=== PATIENT | female | born 1975 | race Caucasian/White ===

== ENCOUNTER 2017-09-26 09:45 | Emergency (ER) | payer OTHER ==
[2017-09-26 09:52] VITALS: BP 114/64
--- NOTE | 2017-09-26 10:14 | UC ---
Hayden Vaughn Gabriel, scribed for Liam Carroll MD on 09/26/17 at 1003 . Complaint Female HPI - HPI Summary HPI Summary: This patient is a 41 year old F presenting to [facility] with a chief complaint of dysuria that began two days ago. The patient rates the pain 3/10 in severity. Patient reports hematuria and frequency. Patient denies fever, chills, back pain , and ABD pain. Pt has a right ovarian mass that she received an MRI for today. She is following up with Dr. Portillo for this. - History Of Current Complaint Chief Complaint: UCGU Stated Complaint: UTI Time Seen by Provider: 09/26/17 09:48 Hx Obtained From: Patient Hx Last Menstrual Period: 06/29 Onset/Duration: Still Present Timing: Constant Severity Initially: Mild Severity Currently: Mild Pain Intensity: 3 Pain Scale Used: 0-10 Numeric Associated Signs And Symptoms: Negative: Fever - Allergies/Home Medications Allergies/Adverse Reactions: Allergies Allergy/AdvReac Type Severity Reaction Status Date / Time No Known Allergies Allergy Verified 09/26/17 09:52 Home Medications: Home Medications Fluoxetine HCl [Prozac] 10 mg PO 09/26/17 [History] PMH/Surg Hx/FS Hx/Imm Hx Other History Of: Negative For: Anticoagulant Therapy - Surgical History Surgical History: Yes Surgery Procedure, Year, and Place: GASTRIC SLEEVE - Social History Alcohol Use: Occasionally Alcohol Amount: 2/WEEK Substance Use Type: None Smoking Status (MU): Never Smoked Tobacco - Immunization History Most Recent Influenza Vaccination: 2013 Most Recent Tetanus Shot: UNKNOWN Most Recent Pneumonia Vaccination: NONE Review of Systems Constitutional: Negative - fever and chills Genitourinary: Dysuria, Hematuria, Frequency All Other Systems Reviewed And Are Negative: Yes Physical Exam - Summary Physical Exam Summary: VITAL SIGNS: Reviewed. GENERAL: Patient is a well-developed and nourished female who is lying comfortable in the stretcher. Patient is not in any acute respiratory distress. HEAD AND FACE: Normocephalic EYES: PERRLA, EOMI x 2. EARS: Hearing grossly intact. MOUTH: Oropharynx within normal limits. NECK: Supple, trachea is midline, no adenopathy, no JVD, no carotid bruit. CHEST: Symmetric, no tenderness at palpation LUNGS: Clear to auscultation bilaterally. No wheezing or crackles. CVS: Regular rate and rhythm, S1 and S2 present, no murmurs or gallops appreciated. ABDOMEN: Soft, non-tender. Bowel sounds are normal. No abdominal abnormal pulsations. EXTREMITIES: Full ROM in all major joints, no edema, no cyanosis or clubbing. NEURO: Alert and oriented x 3. No acute neurological deficits. Speech is normal and follows commands. SKIN: Dry and warm Triage Information Reviewed: Yes Vital Signs: Initial Vital Signs Temp 97.8 F 09/26/17 09:49 Pulse 75 09/26/17 09:49 Resp 18 09/26/17 09:49 BP 114/64 09/26/17 09:49 Pulse Ox 99 09/26/17 09:49 Vital Signs Reviewed: Yes Complaint Female Dx - Course Course Of Treatment: Patient has positive leukocytes and nitrates are negative. However because of the symptoms I would place the patient in nitrofurantoin for UTI. We will send the urine for cultures. I discussed the findings and physicals with the patient and need to follow with the primary care physician. Patient was instructed to return to the urgent care or go to the emergency department if the symptoms worsen. At this point the patient is hemodynamically stable alert and oriented 3. CONCERNS WERE ADDRESSED. - Differential Dx/Diagnosis Provider Diagnoses: UTI Discharge - Sign-Out/Discharge Documenting (check all that apply): Discharge/Admit/Transfer - Discharge Plan Condition: Stable Disposition: HOME Prescriptions: Nitrofurantoin Macrocrystals* [Macrodantin 100 mg*] 100 mg PO BID #14 cap Patient Education Materials: Urinary Tract Infection in Women (ED) Referrals: Noam Doss MD [Primary Care Provider] - Additional Instructions: Take medications as instructed Increase your fluid intake Return to the UC if symptoms worsen - Billing Disposition and Condition Condition: STABLE Disposition: HOME The documentation as recorded by the Hayden wagner Gabriel accurately reflects the service I personally performed and the decisions made by , Liam Carroll MD.
== END 2017-09-26 10:17 | disposition home or self-care (01) ==
LOC: UCEAST 09:45
DX: N39.0 Urinary tract infection, site not specified (principal); R31.9 Hematuria, unspecified; N83.9 Noninflammatory disorder of ovary, fallopian tube and broad ligament, unspecified
CPT/HCPCS: 81003; 87077; 87086; 99212; G0463

== ENCOUNTER 2018-02-20 10:07 | Emergency (ER) | payer BC, OTHER ==
[2018-02-20 10:22] VITALS: BP 123/86
--- NOTE | 2018-02-20 10:24 | UC ---
Complaint Female HPI - HPI Summary HPI Summary: 42 yo female presents with urinary pressure, frequency, and burning for the last 2 days. She has had two UTIs in the last year and this feels the same. She has not taken anything OTC for her discomfort. Denies fever, chills, abdominal pain, n/v, flank pain, vaginal discharge. - History Of Current Complaint Chief Complaint: UCGU Stated Complaint: URINARY COMPLAINT Time Seen by Provider: 02/20/18 10:24 Hx Obtained From: Patient Hx Last Menstrual Period: 02/05/18 Onset/Duration: Gradual Onset Severity Initially: Mild Severity Currently: Mild Pain Intensity: 2 Pain Scale Used: 0-10 Numeric - Allergies/Home Medications Allergies/Adverse Reactions: Allergies Allergy/AdvReac Type Severity Reaction Status Date / Time No Known Allergies Allergy Verified 02/20/18 10:22 PMH/Surg Hx/FS Hx/Imm Hx - Additional Past Medical History Additional PMH: None Other History Of: Negative For: Anticoagulant Therapy - Surgical History Surgical History: Yes Surgery Procedure, Year, and Place: GASTRIC SLEEVE tubal - Family History Known Family History: Positive: None - Social History Occupation: Employed Full-time Lives: With Family Alcohol Use: Occasionally Alcohol Amount: 2/WEEK Substance Use Type: None Smoking Status (MU): Never Smoked Tobacco - Immunization History Most Recent Influenza Vaccination: 2013 Most Recent Tetanus Shot: UNKNOWN Most Recent Pneumonia Vaccination: NONE Review of Systems Constitutional: Negative Skin: Negative Respiratory: Negative Cardiovascular: Negative Gastrointestinal: Negative Genitourinary: Dysuria, Frequency, Urgency Neurological: Negative Psychological: Negative All Other Systems Reviewed And Are Negative: Yes Physical Exam - Summary Physical Exam Summary: GENERAL: NAD. WDWN. No pain distress. SKIN: No rashes, sores, lesions, or open wounds. NECK: Supple. Nontender. No lymphadenopathy. CHEST: CTAB. No r/r/w. No accessory muscle use. Breathing comfortably and in no distress. CV: RRR. Without m/r/g. Pulses intact. Cap refill <2seconds ABDOMEN: Soft. NTTP. No distention or guarding. No CVA tenderness. Bowel sounds present NEURO: Alert. PSYCH: Age appropriate behavior. Triage Information Reviewed: Yes Vital Signs: Initial Vital Signs Temp 96.9 F 02/20/18 10:19 Pulse 63 02/20/18 10:19 Resp 17 02/20/18 10:19 BP 123/86 02/20/18 10:19 Pulse Ox 100 02/20/18 10:19 Laboratory Tests 02/20/18 10:30 POC Urine Color Yellow POC Urine Clarity Clear POC Urine pH 6.0 POC Ur Specif [place] 1.015 POC Urine Protein Negative POC Ur Glucose (UA) Negative POC Urine Ketones Negative POC Urine Blood 1+ A POC Urine Nitrite Negative POC Urine Bilirubin Negative POC Urine Urobilinogen 0.2 POC U Leukocyte Esteras 3+ A Vital Signs Reviewed: Yes Complaint Female Dx - Course Course Of Treatment: UA with signs of infection. Will treat with Bactrim and send urine for culture. - Differential Dx/Diagnosis Provider Diagnoses: UTI Discharge - Sign-Out/Discharge Documenting (check all that apply): Patient Departure All imaging exams completed and their final reports reviewed: No Studies - Discharge Plan Condition: Stable Disposition: HOME Prescriptions: Sulfamethox/Trimethoprim DS* [Bactrim DS 800/160 TAB*] 1 tab PO BID #10 tab Patient Education Materials: Urinary Tract Infection in Women (DC) Referrals: Noam Doss MD [Primary Care Provider] - Additional Instructions: If you develop a fever, shortness of breath, chest pain, new or worsening symptoms - please call your PCP or go to the ED. - Billing Disposition and Condition Condition: STABLE Disposition: Home
--- NOTE | 2018-02-21 20:04 | UC ---
- Progress Note Progress Note: E. Coli on Bactrim no change ljj 02/21/2018 Discharge - Sign-Out/Discharge Documenting (check all that apply): Post-Discharge Follow Up All imaging exams completed and their final reports reviewed: No Studies - Discharge Plan Condition: Stable Disposition: HOME Prescriptions: Sulfamethox/Trimethoprim DS* [Bactrim DS 800/160 TAB*] 1 tab PO BID #10 tab Patient Education Materials: Urinary Tract Infection in Women (DC) Referrals: Noam Doss MD [Primary Care Provider] - Additional Instructions: If you develop a fever, shortness of breath, chest pain, new or worsening symptoms - please call your PCP or go to the ED. - Billing Disposition and Condition Condition: STABLE Disposition: Home
== END 2018-02-20 10:56 | disposition home or self-care (01) ==
LOC: UCEAST 10:07
DX: N39.0 Urinary tract infection, site not specified (principal); B96.20 Unspecified Escherichia coli [E. coli] as the cause of diseases classified elsewhere; Z87.440 Personal history of urinary (tract) infections
CPT/HCPCS: 81003; 87077; 87086; 87186; 99212; G0463

== ENCOUNTER 2018-07-23 17:00 | Emergency (ER) | payer OTHER ==
[2018-07-23 17:18] VITALS: BP 114/72
--- NOTE | 2018-07-23 17:53 | UC ---
Complaint Female HPI - HPI Summary HPI Summary: pt states yesterday she developed urinary urgency, burning, and frequency. as well as some vaginal spotting. pt states she's also had right lower back pain on and off over the past few weeks, as well as on and off headaches - History Of Current Complaint Chief Complaint: UCGU Stated Complaint: POSS UTI Time Seen by Provider: 07/23/18 17:21 Hx Obtained From: Patient Hx Last Menstrual Period: 3 weeks ago Onset/Duration: Gradual Onset, Lasting Days, Still Present Severity Initially: Mild Severity Currently: Moderate Pain Intensity: 4 Pain Scale Used: 0-10 Numeric Character: Burning Aggravating Factor(s): Urination Alleviating Factor(s): Nothing Associated Signs And Symptoms: Negative: Fever, Back Pain, Nausea - Allergies/Home Medications Allergies/Adverse Reactions: Allergies Allergy/AdvReac Type Severity Reaction Status Date / Time No Known Allergies Allergy Verified 07/23/18 17:17 Home Medications: Home Medications Escitalopram Oxalate [Lexapro 20 mg] 20 mg PO DAILY 07/23/18 [History Confirmed 07/23/18] Naproxen [Naproxen 500 mg tab] 500 mg PO DAILY PRN 07/23/18 [History Confirmed 07/23/18] Phentermine HCl 15 mg PO DAILY 07/23/18 [History Confirmed 07/23/18] PMH/Surg Hx/FS Hx/Imm Hx Psychological History: Anxiety, Depression Other History Of: Negative For: Anticoagulant Therapy - Surgical History Surgical History: Yes Surgery Procedure, Year, and Place: GASTRIC SLEEVE, tubal ligation - Family History Known Family History: Positive: None - Social History Alcohol Use: Occasionally Alcohol Amount: 2/WEEK Substance Use Type: None Smoking Status (MU): Never Smoked Tobacco - Immunization History Most Recent Influenza Vaccination: 2013 Most Recent Tetanus Shot: UNKNOWN Most Recent Pneumonia Vaccination: NONE Review of Systems All Other Systems Reviewed And Are Negative: Yes Constitutional: Positive: Negative Respiratory: Positive: Negative Cardiovascular: Positive: Negative Gastrointestinal: Positive: Negative Genitourinary: Positive: Dysuria, Frequency, Urgency Physical Exam Triage Information Reviewed: Yes Appearance: Well-Appearing, No Pain Distress, Well-Nourished Vital Signs: Initial Vital Signs Temp 98.4 F 07/23/18 17:13 Pulse 71 07/23/18 17:13 Resp 14 07/23/18 17:13 BP 114/72 07/23/18 17:13 Pulse Ox 100 07/23/18 17:13 Laboratory Tests 07/23/18 17:34 POC Urine Color Yellow POC Urine Clarity Slightly cloudy POC Urine pH 5.0 POC Ur Specif [place] 1.025 POC Urine Protein 1+ A POC Ur Glucose (UA) Negative POC Urine Ketones Negative POC Urine Blood 2+ A POC Urine Nitrite Negative POC Urine Bilirubin Negative POC Urine Urobilinogen 0.2 POC U Leukocyte Esteras 2+ A Vital Signs Reviewed: Yes Eyes: Positive: Conjunctiva Clear ENT: Positive: Hearing grossly normal Neck: Positive: Supple Respiratory: Positive: No respiratory distress, No accessory muscle use Cardiovascular: Positive: Pulses Normal Abdomen Description: Positive: Nontender, Soft. Negative: CVA Tenderness (R), CVA Tenderness (L), Distended, Guarding Musculoskeletal: Positive: No Edema Neurological: Positive: Alert Psychological: Positive: Age Appropriate Behavior Skin: Negative: Rashes Complaint Female Dx - Differential Dx/Diagnosis Provider Diagnosis: UTI (urinary tract infection) Discharge - Discharge Plan Condition: Stable Disposition: HOME Prescriptions: Phenazopyridine TAB* [Pyridium TAB*] 200 mg PO TID #6 tab Sulfamethox/Trimethoprim DS* [Bactrim DS 800/160 TAB*] 1 tab PO BID #10 tab Patient Education Materials: Urinary Tract Infection in Women (ED) Referrals: Noam Doss MD [Primary Care Provider] - If Needed Tristen Martinez MD [Medical Doctor] - Additional Instructions: URINE SENT FOR CULTURE. TAKE THE ANTIBIOTICS FOR THE FULL COURSE. STAY WELL HYDRATED. WE WILL CALL YOU IF YOUR TREATMENT NEEDS TO BE MODIFIED. CONSIDER UROLOGY EVALUATION FOR RECURRENT UTI OVER THE PAST YEAR. - Billing Disposition and Condition Condition: STABLE Disposition: Home
== END 2018-07-23 18:08 | disposition home or self-care (01) ==
LOC: UCEAST 17:00
DX: N39.0 Urinary tract infection, site not specified (principal); M54.5 Low back pain; F41.9 Anxiety disorder, unspecified; F32.9 Major depressive disorder, single episode, unspecified
CPT/HCPCS: 81003; 87077; 87086; 87186; 87798; 99212; G0463

== ENCOUNTER 2019-05-27 17:00 | Emergency (ER) | payer OTHER ==
[2019-05-27 17:17] VITALS: BP 114/82
--- NOTE | 2019-05-27 18:34 | UC ---
Throat Pain/Nasal Leif HPI - HPI Summary HPI Summary: Patient's a 43-year-old female presents to urgent care for evaluation of cough and congestion progressive for about 3 weeks. Patient states has had increased facial pressure and discomfort. Patient states occasionally has some wheezing. No fevers or chills. No headache or vision changes. No nausea or vomiting. States she just feels rundown and can't seem to take it. Patient states she is no . Patient's medications was entered in the EMR reviewed this visit. - History of Current Complaint Chief Complaint: UCRespiratory Stated Complaint: COUGH, CONGESTION Time Seen by Provider: 05/27/19 18:27 Hx Obtained From: Patient Hx Last Menstrual Period: one week ago Pain Intensity: 2 - Allergies/Home Medications Allergies/Adverse Reactions: Allergies Allergy/AdvReac Type Severity Reaction Status Date / Time No Known Allergies Allergy Verified 05/27/19 17:17 Home Medications: Home Medications Topiramate TAB(*) [Topamax 100 mg tab] 1 tab PO DAILY 05/27/19 [History Confirmed 05/27/19] PMH/Surg Hx/FS Hx/Imm Hx Previously Healthy: Yes Other History Of: Negative For: Anticoagulant Therapy - Surgical History Surgical History: Yes Surgery Procedure, Year, and Place: GASTRIC SLEEVE, tubal ligation - Family History Known Family History: Positive: None, Non-Contributory - Social History Occupation: Employed Full-time Lives: With Family Alcohol Use: Occasionally Alcohol Amount: 2/WEEK Substance Use Type: None Smoking Status (MU): Never Smoked Tobacco - Immunization History Most Recent Influenza Vaccination: 2013 Most Recent Tetanus Shot: UNKNOWN Most Recent Pneumonia Vaccination: NONE Review of Systems All Other Systems Reviewed And Are Negative: Yes Constitutional: Positive: Fatigue ENT: Positive: Sinus Congestion, Sinus Pain/Tenderness Respiratory: Positive: Cough, Other - Wheeze Physical Exam - Summary Physical Exam Summary: Vital Signs Reviewed: Yes A+Ox3, no distress Eyes: Conjunctiva Clear, LATOYA. EOM intact and full ENT: Hearing grossly normal TM x 2 clear, turbinates inflammed and boggy, + PND , + ttp frontal amd max sinuses mmoist, uvula midline, no exudate, no erythema Neck: Positive: Supple Respiratory: Positive: No respiratory distress, No accessory muscle use + few scattered wheeze, no increased sob intermittent cough Cardiovascular: RRR nl s1, s2 no m/r CBT <2 sec abd soft + BS nt/nd no guarding, no distension Musculoskeletal Exam: TY x 4 without difficulty Strength Intact, ROM Intact Neurological: Positive: Alert, + sensation throughout Psychological: Positive: Normal Response To examiner Skin: Positive: no rash, no ecchymosis Triage Information Reviewed: Yes Vital Signs: Initial Vital Signs Temp 98.7 F 05/27/19 17:15 Pulse 74 05/27/19 17:15 Resp 12 05/27/19 17:15 BP 114/82 05/27/19 17:15 Pulse Ox 99 05/27/19 17:15 Throat Pain/Nasal Course/Dx - Course Course Of Treatment: Patient presents urgent care with 3 weeks of progressive sinus congestion postnasal drip, slight wheeze. Patient reports fatigue. No fevers or chills. Patient states that MEDICATION without much improvement. On exam vital signs are stable. Patient does have consistent exam findings with sinusitis. Patient also with a slight cough and respiratory wheeze. Will start patient on amoxicillin as well as Albuterol MDI. Secretion precautions discussed. Return precautions discussed. Patient comfortable and agreed with plan. - Differential Dx/Diagnosis Provider Diagnosis: Acute bronchitis, Sinusitis Discharge ED - Sign-Out/Discharge Documenting (check all that apply): Patient Departure All imaging exams completed and their final reports reviewed: No Studies - Discharge Plan Condition: Stable Disposition: HOME Prescriptions: Albuterol HFA INHALER* [Ventolin HFA Inhaler*] 1 - 2 puff INH Q4H PRN #1 mdi PRN Reason: wheeze Amoxicillin PO (*) [Amoxicillin 500 MG CAP*] 500 mg PO Q12H #20 cap Patient Education Materials: Acute Bronchitis (ED), Rhinosinusitis (ED) Referrals: Noam Doss MD [Primary Care Provider] - Additional Instructions: -Take antibiotics exactly as prescribed until gone -Use your albuterol puffer - 2 puffs every 4 hours for the next 2 days - then as needed -Stay well hydrated - avoid excess caffeine and all alcohol - eat regular, healthy meals - - humidify the air in the room where you sleep - boil water, run a hot steam shower, vaporizer, cups of water by heat register - okay to take over the counter decongestant and cough medication -- These infections are spread by secretions - do NOT share eating or drinking utensils - clean items you share with other people such as cell phones, computer mouse, TV remote, computer tablets,etc.. Once you have been antibiotics for 2 days, change your toothbrush and your pillowcase. -Contact your doctor to arrange a follow-up appointment this week. Call your doctor, return here or go to the emergency department with any questions or concerns - Billing Disposition and Condition Condition: STABLE Disposition: Home
== END 2019-05-27 18:52 | disposition home or self-care (01) ==
LOC: UCEAST 17:00
DX: J20.9 Acute bronchitis, unspecified (principal); J32.9 Chronic sinusitis, unspecified
CPT/HCPCS: 99212; G0463